=== PATIENT | female | born 2000 | race Caucasian/White ===

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

== ENCOUNTER 2021-11-08 12:44 | Inpatient (IN) ==
[2021-11-08] MEDS ORDERED: Buffered Lidocaine 1% SYRIN 1 ml INTRADERM ONE ×2 (12:51→16:13)
[2021-11-08 13:53] LABS: Hematocrit 39 % (35-47); Hemoglobin 12.7 g/dL (12.0-16.0); Mean Corpuscular HGB Conc 32 g/dL (31-36); Mean Corpuscular Hemoglobin 25 pg (27-31); Mean Corpuscular Volume 77 fL (80-97); Platelet Count 220 10^3/uL (150-450); Red Blood Count 5.08 10^6 /uL (3.70-4.87); Red Cell Distribution Width 14 % (10-15); White Blood Count 14.9 10^3/uL (3.5-10.8)
[2021-11-08] MEDS: Lactated Ringers 1000 ml BAG 1,000 ML IV SCH ×2 (14:05→17:05)
[2021-11-08 14:28] LABS: ABS Basophils 0.1 10^3/ul (0-0.2); ABS Eosinophils 0.1 10^3/ul (0-0.6); ABS Lymphocytes 1.5 10^3/ul (1.0-4.8); ABS Monocytes 0.7 10^3/ul (0-0.8); ABS Neutrophils 12.5 10^3/ul (1.5-7.7); Eosinophil % 0.4 %; Lymphocyte % 10.3 %
[2021-11-08] MEDS ORDERED: OBEPIDURAL (200 ML) 200 ML EPIDURAL ONE (14:31)
[2021-11-08 14:33] LABS: Urine Benzodiazepine Screen None Detected (None Detect); Urine Cannabinoids Screen None Detected (None Detect); Urine Opiates Screen None Detected (None Detect)
[2021-11-08] MEDS ORDERED: Lactated Ringers 1000 ml BAG 1,000 ML IV ONE (16:13)
[2021-11-08 18:08] LABS: Urine Appearance Clear; Urine Bilirubin Negative (Negative); Urine Color Yellow; Urine Glucose Negative (Negative); Urine Ketones 1+ (15mg/dL) (Negative); Urine Nitrite Negative (Negative); Urine Protein Trace (Negative); Urine Specific Gravity 1.025 (1.005-1.030); Urine Urobilinogen 0.2 (Negative) (Negative)
[2021-11-08 18:12] LABS: Urine Bacteria Absent (Absent); Urine Red Blood Cell 2+(6-10/hpf) (Absent); Urine Squamous Epithelial Cell Present (Absent); Urine Transitional Epithelial Present (Absent); Urine White Blood Cell Absent (Absent)
[2021-11-08] MEDS ORDERED: Ondansetron 4 mg VIAL 2 MG/ML 2 ml VIAL IV PRN (20:55)
[2021-11-08] MEDS ORDERED: Oxytocin in LR 20,000 MILLI.UNIT/1,000 ML BAG IV SCH (21:00)
[2021-11-09] MEDS: Lactated Ringers 1000 ml BAG 1,000 ML IV SCH (03:38)
[2021-11-09] MEDS ORDERED: Witch Hazel PAD JAR TOPICAL PRN (04:52)
[2021-11-09] MEDS ORDERED: Dibucaine 1% OINT 28.35 GM TUBE PR PRN (04:52)
[2021-11-09] MEDS ORDERED: Oxytocin in LR 20,000 MILLI.UNIT/1,000 ML BAG IV SCH (05:00)
[2021-11-09] MEDS ORDERED: Lactated Ringers 1000 ml BAG 1,000 ML IV SCH (05:00)
[2021-11-09] MEDS ORDERED: Lidocaine 1% VIAL 10 MG/ML VIAL ONE (09:25)
[2021-11-10 07:20] LABS: ABS Basophils 0.1 10^3/ul (0-0.2); ABS Eosinophils 0.1 10^3/ul (0-0.6); ABS Lymphocytes 2.2 10^3/ul (1.0-4.8); ABS Monocytes 0.8 10^3/ul (0-0.8); ABS Neutrophils 10.9 10^3/ul (1.5-7.7); Hematocrit 38 % (35-47); Hemoglobin 12.2 g/dL (12.0-16.0); Lymphocyte % 15.4 %; Mean Corpuscular HGB Conc 32 g/dL (31-36); Mean Corpuscular Hemoglobin 25 pg (27-31); Mean Corpuscular Volume 79 fL (80-97); Mean Platelet Volume 9.1 fL (7.4-10.4); Platelet Count 193 10^3/uL (150-450); Red Blood Count 4.81 10^6 /uL (3.70-4.87); Red Cell Distribution Width 15 % (10-15)
[2021-11-11] MEDS: Butalb/Acetamin/Caff TAB 325-50-40MG PO PRN ×3 (09:01→21:08)
[2021-11-12] MEDS: Butalb/Acetamin/Caff TAB 325-50-40MG PO PRN ×2 (04:23→10:19)
[2021-11-12 07:47] VITALS: BP 106/62
== END 2021-11-12 13:40 | disposition home or self-care (01) | DRG 560 ==
LOC: MCHOBOUT 12:44 → MCHOB 12:50
PROVIDERS: ADMIT Midwife; ATTEND Midwife